=== PATIENT | female | born 1980 | race Caucasian/White ===

== ENCOUNTER 2017-07-10 15:43 | Observation (INO) | payer SELFPAY ==
[~2017-07-10] VITALS: Ht 165.1 cm; Wt 82.4 kg
--- NOTE | ~2017-07-10 | ER ---
PATIENT'S NAME: GLORIA HERNANDEZ [facility] AGE: 37 Y [address] ROOM: [place] [id number] LOCATION: GPCU ADMIT DATE: 07/10/2017 ER/Outpatient Report DISCHARGE DATE: FAMILY PHYSICIAN: PHYSICIAN, NO ATTENDING PHYSICIAN: Abel Torrez Time of Arrival: 1543 hours. Time of Evaluation: 1543 hours. IDENTIFICATION: A 37-year-old female. CHIEF COMPLAINT: Overdose. HISTORY OF PRESENT ILLNESS: The patient is a 37-year-old female, who presents with a friend stating that she ingested 20 to 30 tablets of a pill that she has in her hand. She is not certain what it is, and it might be citalopram, and she does not know the dose. It was prescribed by Dr. Torrez in January. She thinks maybe to [facility] pharmacy. She did take the tablets in an attempt to harm herself. She started feeling hot and nauseous, so that is why she called her friend. She did tell the nurse that she wished she was not here telling about it that she wished she was . She told me that she has a prior suicide attempt as a teenager. She does have depression and ADHD. She was prescribed antidepressant in January, but decided not to take it, took only a couple of days worth. ALLERGIES: NO KNOWN DRUG ALLERGIES. CURRENT MEDICATIONS: None. She is supposed to be taking thyroid medication, which she has not been taking for quite some time, and the citalopram was prescribed, but she did not take it regularly. MEDICAL PROBLEMS: Depression, ADHD, hypothyroidism. PRIOR SURGERIES: Breast reduction; and 2 children, normal vaginal deliveries, they are ages 11 and 16. 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 ROOM: [address] [address] LOCATION: GPCU ADMIT DATE: 07/10/2017 ER/Outpatient Report DISCHARGE DATE: FAMILY PHYSICIAN: PHYSICIAN, NO ATTENDING PHYSICIAN: Abel Torrez of April. She has 2 children, ages 11 and 16. She lives here in [place]. Tobacco use, denies. Alcohol use, denies. Drug use, denies. FAMILY HISTORY: Positive for ADHD and cancer. REVIEW OF SYSTEMS: All systems reviewed and negative other than what is noted in the HPI other than she did make herself vomit x2, and she has not had a period in 5 years. PHYSICAL EXAMINATION: VITAL SIGNS: Weight 84 kg, blood pressure 132/76, pulse 79, respirations 20, temperature 97.5, sats 98% on room air. GENERAL: A 37-year-old female, who is a little bit restless, in no acute distress. HEENT: Head: Normocephalic, atraumatic. Ears: TMs translucent both ears. Eyes: Pupils equal and reactive to light and accommodation. Extraocular movements intact. Nose: Mucosa pink. No lesions. Mouth: No lesions. Pharynx benign. NECK: Supple. No lymphadenopathy. LUNGS: Clear to auscultation. HEART: Regular rate and rhythm. ABDOMEN: Soft, nondistended, nontender. SKIN: Hustler, warm, and dry. No lesions or rashes noted. NEURO: The patient is alert and oriented x4. Cranial nerves 2 through 12 grossly intact. Motor strength 5/5 throughout. Sensation is intact to light touch. No lower extremity edema. Affect, she is tearful. Makes good eye contact. LABORATORY DATA AND X-RAYS: Sodium 143, potassium 3.9, chloride 111, CO2 of 25, BUN 19, creatinine 0.7, blood sugar 114. Liver enzymes normal. Alcohol level less than 0.010. Acetaminophen less than 2. Salicylate less than 2.8. HCG 1. Free T4 is 0.8, TSH 2.090. Hemoglobin 13.8, hematocrit 40.6, platelets 182. White count 6.7 with a normal differential. Urine drug screen positive for amphetamines. EKG: Normal sinus rhythm at 72 beats per minute. No acute ST elevation or depression. QRS 110 millisecond, QT corrected 430 milliseconds. IMPRESSION: 1. Intentional overdose. 2. Selective serotonin reuptake inhibitor toxicity. 3. Positive amphetamine on drug screen. PLAN: PATIENT'S NAME: GLORIA HERNANDEZ [facility] AGE: 37 Y [address] ROOM: [place] [address] [facility] ADMIT DATE: 07/10/2017 ER/Outpatient Report DISCHARGE DATE: FAMILY PHYSICIAN: PHYSICIAN, NO ATTENDING PHYSICIAN: Abel Torrez IV fluids normal saline at 75 mL/h. Poison Control was contacted. They said the maximum daily dose of the citalopram is 40 mg. I did verify that the pill was citalopram with our Pharmacy, Poison Control, and [facility] prescribed in January. Restlessness, agitation, shakiness, hyperreflexia, seizures, hypertension, bradycardia, SOFTWARE DEVELOPER INTERN depression could be symptoms. Widened QRS and prolonged QT could be symptoms. They recommend serum alkalinization if the QRS is greater than 120 with IV sodium bicarb. Recheck EKG in 6 hours. Treat any seizures, agitation, or tremors with benzodiazepine, supportive care. No charcoal as she is presenting 2-1/2 hours after ingestion. The medication peaks in 2 to 4 hours, but the elimination half-life is long-lasting 33 to 35 hours. Poison Control recommends no symptoms and normalization of the QRS to less than 100 prior to being considered medically stable and discharged. Dr. Diehl will provide admission for Dr. Torrez to the hospital, and she will remain 1:1 suicide precautions. ALEX COLLAZO MD CAR/modl /[id number] d: 07/10/172018 t: 07/13/17 0748, OUTPATIENT REPORT
--- NOTE | ~2017-07-10 | ER ---
PATIENT'S NAME: GLORIA HERNANDEZ [facility] AGE: 37 Y [address] ROOM: [place] [address] [facility] ADMIT DATE: 07/10/2017 ER/Outpatient Report DISCHARGE DATE: FAMILY PHYSICIAN: PHYSICIAN, NO ATTENDING PHYSICIAN: Abel Torrez ADDENDUM: I did ask Gloria about her positive drug screen. She said, "Oh, I thought you were going to ask me about that." She said she forgot that she did use meth last week and marijuana last week. Last use she reports is last week. MD BIRD BUCIO/magy /[id number] d: 07/10/171913 t: 07/13/17 0745, OUTPATIENT REPORT
--- NOTE | ~2017-07-10 | HP ---
PATIENT'S NAME: GLORIA HERNANDEZ [facility] AGE: 37 Y [address] ROOM: [address] [place], [place] [address] LOCATION: GPCU ADMIT DATE: 07/10/2017 History & Physical DISCHARGE DATE: FAMILY PHYSICIAN: PHYSICIAN, NO ATTENDING PHYSICIAN: Abel Torrez DATE OF SERVICE: CHIEF COMPLAINT: Intentional medication overdose, suicide attempt, and depression. HISTORY OF PRESENT ILLNESS: The patient is a 37-year-old female, who presented to the emergency room after calling a friend stating that she took approximately 25 pills of 20- mg citalopram. She intentionally took the medication around 1:30 p.m. The friend brought her to the emergency room. She had seen Dr. Torrez in December 2016, with symptoms of depression. She scored 27/27 on her PHQ-9. She was started on citalopram 20 mg daily and given #30 with 0 refills at that time. She states that she took approximately 5 days worth of the medication back in December and did not notice any improvement in her symptoms, so she quit taking them. It was the remaining pills that she had left in the bottle that she took today. She has a history of depression and suicide attempt in [facility]. She states that at that time she also overdosed on medication. She denies any family history of depression or anxiety, but does report history of ADHD in her mother. She states she has just simply felt very overwhelmed recently. She recently lost her job at [employer]. She admits to using meth 1 week ago. She has been in a "custody domínguez" with her 11-year-old daughter Virginia. She states that Virginia's father is a felon and his family has been trying to get custody. She feels that they framed her to look "unfit." She states that her utilities had been shot off at her home and she has an eviction notice. She did not feel that her 16-year-old son and 11-year-old daughter could live with her in that situation so they have been living with her father. She went to visit them today, and when she returned home, she simply felt very overwhelmed and depressed and decided to overdose. She states she took the medication with an intention to kill herself. PAST MEDICAL HISTORY: She reports history of ADHD. She states that she was diagnosed with hypothyroidism, 16 years ago. She had thyroid labs checked in December 2016, that were normal. PATIENT'S NAME: GLORIA HERNANDEZ [facility] AGE: 37 Y [address] ROOM: [address] [place], [place] [address] LOCATION: GPCU ADMIT DATE: 07/10/2017 History & Physical DISCHARGE DATE: FAMILY PHYSICIAN: PHYSICIAN, NO ATTENDING PHYSICIAN: Abel Torrez PAST SURGICAL HISTORY: Breast reduction. MEDICATIONS: No regular medications. She did have a prescription for citalopram 20 mg daily and this is what she overdosed on today. ALLERGIES: NONE. FAMILY HISTORY: She reports mother with ADHD and hypothyroidism. REPRODUCTIVE HISTORY: She is a G2, P2. Reports she has not had a period in about 6 months. SOCIAL HISTORY: She recently lost her job at [employer]. She lives at home. She reports her utilities had been shut off and she is currently facing an eviction notice. She states she smokes very rarely. Reports very rare alcohol use. States that 1 week ago she did use methamphetamines and that this is also very rare for her to use. She is not sure how much she used and she states she took it orally. PHYSICAL EXAMINATION: VITAL SIGNS: In the ER, weight 84 kg, pulse 79, respiratory rate 20, temperature 97.5, O2 sat 98% on room air. GENERAL: She is awake, alert, and oriented. She does appear agitated. She is answering questions appropriately. EYES: PERRLA. EOMI. MOUTH: Mucous membranes are moist. HEART: Regular rate and rhythm without murmur. LUNGS: Clear to auscultation throughout. No crackles or wheezing noted. ABDOMEN: Soft, nontender, and nondistended. No masses palpated. No guarding or rebound tenderness. EXTREMITIES: No peripheral edema noted. SKIN: No redness or rash noted. She does have some tattoos. LABS: WBC is 6.7, hemoglobin 13.8, platelets 182 with a normal differential. Sodium 143, potassium 3.9, chloride 111, bicarb 25, anion gap 10.9, blood sugar 114, calcium 8.6, BUN 19, creatinine 0.7. Alkaline phosphatase 85, total bilirubin 0.3, AST 13, ALT 20. GFR greater than 90. Alcohol less than 0.01. Acetaminophen less than 2. Salicylate less than 2.8. HCG 1. Free T4 0.8, TSH 2.09. Urine drug screen positive for acetaminophen, negative for PATIENT'S NAME: GLORIA HERNANDEZ [facility] AGE: 37 Y [address] ROOM: [place] [address] LOCATION: GPCU ADMIT DATE: 07/10/2017 History & Physical DISCHARGE DATE: FAMILY PHYSICIAN: PHYSICIAN, NO ATTENDING PHYSICIAN: Abel Torrez remaining tests. Four-hour followup acetaminophen level also negative. EKG in the ER at 1556 hours showed a ventricular rate of 72, OR interval 110 milliseconds, QRS 110 milliseconds, QTc 406 milliseconds with QT corrected 430 milliseconds. No acute changes noted. ASSESSMENT AND PLAN: Depression with intentional medication overdose with suicide attempt. She received a prescription for 20 mg of citalopram #30 and 0 refills in December. She filled them in January. She states she took only 5 days worth of the medication and did not notice an improvement in her symptoms, so she quit taking them. She took the remaining [address] Ferrell in the emergency room and her discussion with Poison Control, this would be approximately a max of 600 mg of citalopram. They recommended supportive care. She was outside the treatment window with charcoal. They advised that if her QRS became greater than 120 milliseconds that she would require alkalinization. They report that the medication peaks around 2-4 hours after ingestion which should be between 3:30 to 5:30 p.m. They recommend a repeat EKG in 6 hours which has been done. Of note, the repeat EKG shows a heart rate of 77 with QRS interval of 105 milliseconds, OR interval of 108 milliseconds, QT 396 milliseconds, and QT corrected 428 milliseconds. Therefore, the QRS interval is actually getting smaller. They recommend monitoring her until she is asymptomatic and her EKG is normal. At this time, she is agitated. Police have already been up here and have done an EPC. I am writing for some Ativan 0.5 mg oral or IV q.2 hours p.r.n. agitation. We will recheck a CBC, CMP, and an EKG in the morning. MD FAYE SEGUNDO/magy /[id number] D: T: [id number] HISTORY & PHYSICAL
[2017-07-10 16:05] LABS: BASOPHIL # 0.1 K/uL (0.0-0.2); BASOPHIL % 0.7 %; EOSINOPHIL # 0.2 K/uL (0.0-0.5); EOSINOPHIL % 3.1 %; HEMATOCRIT 40.6 % (33.0-46.0); HEMOGLOBIN 13.8 g/dL (11.0-15.0); IMMATURE GRANULOCYTE % 0.1 %; LYMPHOCYTE # 2.2 K/uL (0.8-4.0); MCH 30.6 pg (27.0-34.0); MONOCYTE # 0.4 K/uL (0.0-1.0); MONOCYTE % 5.8 %; MPV 10.6 fl (9.4-12.4); NEUTROPHIL # (ANC) 3.9 K/uL (1.8-7.8); NEUTROPHIL % 58.3 %; NRBC % 0 /100WBC (0-0.00); PLATELET COUNT 182 K/uL (150-450); RBC 4.51 M/uL (3.50-5.50); RDW-CV 12.8 % (11.9-14.6); WBC 6.7 K/uL (4.0-11.0)
[2017-07-10 16:26] LABS: ALBUMIN 3.4 gm/dL (3.5-5.0); ALK PHOS 85 IU/L (33-138); ALT 20 IU/L (12-78); ANION GAP 10.9 (10.0-19.0); AST 13 IU/L (10-40); BLOOD UREA NITROGEN 19 mg/dL (6-24); CALCIUM 8.6 mg/dL (8.5-10.5); CHLORIDE 111 mMol/L (96-110); CO2 25 mMol/L (22-32); CREATININE 0.7 mg/dL (0.5-1.1); POTASSIUM 3.9 mMol/L (3.7-5.1); SODIUM 143 mMol/L (135-145); TOTAL BILIRUBIN 0.3 mg/dL (0.0-1.5)
[2017-07-10 16:32] LABS: BARBITURATE NEGATIVE (NEGATIVE); COCAINE NEGATIVE (NEGATIVE); OPIATES NEGATIVE (NEGATIVE)
[2017-07-10 16:33] LABS: AMPHETAMINE POSITIVE (NEGATIVE)
--- NOTE | 2017-07-10 18:23 | NUR ---
ADMIT NOTE: A 37 YR. OLD W/F ADMITTED FROM ER, OD OF CELEXA MEDICATION PT. A/O X 3. ANXIOUS, GUARDED, BUT COOPERATIVE. PT. HAD TAKEN APPROX. 20 CELEXA PILLS. HAD A NEW PRESCRIPTION FILLED IN JANUARY, BUT HADN'T BEEN TAKING THEM. CONT. TO MONITER OD PRECAUTIONS.
[2017-07-11 03:39] LABS: BASOPHIL # 0.1 K/uL (0.0-0.2); BASOPHIL % 0.9 %; EOSINOPHIL # 0.2 K/uL (0.0-0.5); EOSINOPHIL % 2.5 %; HEMATOCRIT 40.3 % (33.0-46.0); HEMOGLOBIN 13.4 g/dL (11.0-15.0); IMMATURE GRANULOCYTE % 0.3 %; LYMPHOCYTE # 2.2 K/uL (0.8-4.0); MCHC 33.3 gm/dL (32.0-36.5); MCV 90.2 fl (83.0-98.0); MONOCYTE # 0.4 K/uL (0.0-1.0); MONOCYTE % 6.1 %; MPV 10.4 fl (9.4-12.4); NEUTROPHIL # (ANC) 3.7 K/uL (1.8-7.8); NEUTROPHIL % 57.2 %; NRBC % 0 /100WBC (0-0.00); PLATELET COUNT 192 K/uL (150-450); RBC 4.47 M/uL (3.50-5.50); RDW-CV 12.7 % (11.9-14.6); WBC 6.5 K/uL (4.0-11.0)
[2017-07-11 03:55] LABS: ALBUMIN 3.4 gm/dL (3.5-5.0); ALK PHOS 77 IU/L (33-138); ALT 18 IU/L (12-78); ANION GAP 8.9 (10.0-19.0); AST 12 IU/L (10-40); BLOOD UREA NITROGEN 14 mg/dL (6-24); CALCIUM 8.5 mg/dL (8.5-10.5); CHLORIDE 108 mMol/L (96-110); CO2 30 mMol/L (22-32); CREATININE 0.6 mg/dL (0.5-1.1); POTASSIUM 3.9 mMol/L (3.7-5.1); SODIUM 143 mMol/L (135-145); TOTAL PROTEIN 6.8 g/dL (6.0-8.4)
[2017-07-11 03:56] LABS: TOTAL BILIRUBIN 0.6 mg/dL (0.0-1.5)
--- NOTE | 2017-07-11 12:13 | NUR ---
Alert and oriented x 3. Up ad mary ellen. Room air. Final viatals RR 18, HR 90, O2 97 Room air. Temp 98.1. EKG's done this am. [facility] Wellness Coordinator consult, ok for transport per cardiology. 1:1 sitter. Pleasant and cooperative with cares. No bowel movement this shift.
--- NOTE | 2017-07-11 12:29 | NUR ---
Reviewed Jose F' chart and talked with LISA Sun. Corinne tells me that orders have been filled out for Nicole to dismiss to [facility] as soon as they can take her. I noticed on the chart, [facility] had filled out "notify law enforcement of discharge" paper and it was left on her chart. I phoned over to [facility], [phone], talked with Niyah in dispatch, she confirms with me that Nicole is an EPC with them and they will do the transfer over to [facility] whenever she is ready to go. I let Niyah know that we had to do the RN to RN report with [facility] yet so if she could send an officer up at 1200 to pick up and delivery driver that would be great. Niyah states she will do this. I came into Jose F' room, 1:1 TUNG garza was with her. She was laying in bed relaxing when I entered the room. Introduced myself and CM role to to Nicole. She tells me that she lives here in [place] alone in an apartment. She did share with me that she recently got a notice of evicition to her apartment, but is trying to work with her landlord to stay there. Her electricity was shut off around a month ago and she is working on getting that turned back on. Asked if she had any family that would help her out, she says that they "kind of do but I have burned my bridges with them so I am pretty much on my own." Nicole doesn't currenly have a steady job. 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 Asked if she was going to try to find another job when she was release from [facility], but she tells me she isn't for sure at this time. She does have family in the area. She has an 11 year old daughter that is currently under the care of her dad and she lives with him in [place], [place]. Niocle is working on trying to get her back in the home with her when she is more stable. Nicole tells me that she was supposed to have an appt with [facility] today at 1430, but since she is here she can't make it. I offered to call over and reschudule it for her for next week sometime. Nicole was fine with this. I let her know that since she was an EPC that [facility] would be picking her up here at 1200 to take her over to [facility]. She has cloths in her room, INFORMATION RECEPTIONIST going to help her get dressed. LISA Sun called in RN to RN report and I confirmed with Angy in [facility] that they were expecting her to come to their adult unit and also that was going to be the one to accept. Nicole denies any other questions, needs or concerns. I did step out of the room, called over to [facility] and left a VM for Kia as she didn't answer when I called. Asked that she call me back so I could reschedule a time for Nicole to come and see her. No call back as of now. I updated Nicole to this, she asks that when I get it rescheduled for her, I call her cell phone, , and leave her a VM with the date and time. Let her know I would do this. CM to continue to follow and assist. Plan for [facility] today via [facility] transport.
[2017-07-11] MEDS ORDERED: CELEXA20 MG PO (15:41)
[2017-07-14] MEDS ORDERED: STRATTERA40 MG PO (12:37)
[2017-07-14] MEDS ORDERED: LEXAPRO10 MG PO (12:40)
[2017-07-14] MEDS ORDERED: VISTARIL50 MG PO (12:42)
== END 2017-07-11 12:00 ==
LOC: GMED 15:43 → GPCU 16:42
PROVIDERS: Family Medicine; ADMIT Family Medicine
DX: T43.222A Poisoning by selective serotonin reuptake inhibitors, intentional self-harm, initial encounter (principal); F32.9 Major depressive disorder, single episode, unspecified; E03.9 Hypothyroidism, unspecified; F12.10 Cannabis abuse, uncomplicated; F90.9 Attention-deficit hyperactivity disorder, unspecified type; Z98.890 Other specified postprocedural states; Y92.89 Other specified places as the place of occurrence of the external cause
CPT/HCPCS: G0480; J7030